=== PATIENT | female | born 1930 | race African-American/Black ===

== ENCOUNTER → 2016-11-10 | Outpatient (CLI) | payer MEDICARE, BC ==
--- NOTE | 2016-11-11 20:03 | XCELERA REPORT ---
[address] [address] Transthoracic Echocardiogram Report Name: GRANT HERNANDEZ Age: 86 yrs Gender: Female : 1930 Patient Status: Outpatient Patient Location: Study Date: 11/10/2016 07:59 AM Height: 66 in Weight: 127 lb BSA: 1.6 m2 Procedure: A complete two-dimensional transthoracic echocardiogram was performed (2D, M-mode, spectral and color flow Doppler). The study was technically adequate with some images being suboptimal in quality. Reason For Study: SOB, EDEMA, HTN Ordering Physician: SANTO CONNOLLY Performed By: Rita Rubalcava Interpretation Summary Left ventricular systolic function is low normal. There is mild concentric left ventricular hypertrophy. The left ventricle is grossly normal size. Doppler measurements suggest pseudonormalized left ventricular relaxation, which is associated with grade II/IV or mild to moderate diastolic dysfunction Wall motion cannot be accurately commented on, but no definite regional wall motion abnormalities noted. The right ventricular systolic function is normal. Borderline right atrial enlargement. The left atrial size is normal. There is a mild amount of mitral regurgitation There is no mitral valve stenosis. No aortic regurgitation is present. There is no aortic valve stenosis There is a mild amount of tricuspid regurgitation There is mild pulmonary hypertension by echo Right ventricular systolic pressure is estimated to be elevated at 30- 40mmHg. The aortic root is not well visualized but is probably normal size. The inferior vena cava appeared dilated and decreased < 50% with respiration (RAP 15-20 mmHg) Minimal pericardial effusion. MMode/2D Measurements & Calculations RVDd: 2.6 cm LVIDd: 3.9 cm FS: 33.3 % Ao root diam: 3.0 cm IVSd: 1.1 cm LVIDs: 2.6 cm EDV(Teich): 64.4 ml LVPWd: 1.1 cm ESV(Teich): 24.1 ml Ao root area: 7.0 cm2 EF(Teich): 62.6 % LA dimension: 3.6 cm LVOT diam: 2.4 cm LVOT area: 4.6 cm2 Doppler Measurements & Calculations MV E max jony: MV P1/2t max jony: Ao V2 max: LV V1 max P.0 cm/sec 101.4 cm/sec 100.9 cm/sec 2.1 mmHg MV A max jony: MV P1/2t: 52.2 msec Ao max PG: LV V1 max: 33.9 cm/sec MVA(P1/2t): 4.2 cm2 4.1 mmHg 71.6 cm/sec MV E/A: 3.0 MV dec slope: CATHERINE(V,D): 3.3 cm2 569.5 cm/sec2 PA V2 max: TR max jony: 69.9 cm/sec 264.2 cm/sec PA max P.0 mmHgTR max P.9 mmHg Left Ventricle The left ventricle is grossly normal size. There is mild concentric left ventricular hypertrophy. Left ventricular systolic function is low normal. Doppler measurements suggest pseudonormalized left ventricular relaxation, which is associated with grade II/IV or mild to moderate diastolic dysfunction. Wall motion cannot be accurately commented on, but no definite regional wall motion abnormalities noted. Right Ventricle The right ventricle is grossly normal size. There is normal right ventricular wall thickness. The right ventricular systolic function is normal. Atria Borderline right atrial enlargement. The left atrial size is normal. Interarterial septum not well visualized and not well dopplered. Cannot comment on ASD/PFO presence. Mitral Valve The mitral valve is grossly normal. There is no mitral valve stenosis. There is a mild amount of mitral regurgitation. Aortic Valve The aortic valve is grossly normal. There is no aortic valve stenosis. No aortic regurgitation is present. Tricuspid Valve The tricuspid valve is not well visualized, but is grossly normal. There is no tricuspid stenosis. There is a mild amount of tricuspid regurgitation. There is mild pulmonary hypertension by echo. Right ventricular systolic pressure is estimated to be elevated at 30-40mmHg. Pulmonic Valve The pulmonic valve is not well visualized. Great Vessels The aortic root is not well visualized but is probably normal size. The inferior vena cava appeared dilated and decreased < 50% with respiration (RAP 15-20 mmHg). Effusions Minimal pericardial effusion. : SANTO CONNOLLY > Diandra Dowell
== END ==
LOC: SP 07:38
PROVIDERS: ATTEND Family Medicine
DX: R06.02 Shortness of breath (principal); R60.1 Generalized edema; E78.4 Other hyperlipidemia
CPT/HCPCS: 93306

== ENCOUNTER → 2017-10-25 | Outpatient (CLI) | payer MEDICARE, BC ==
--- NOTE | 2017-10-25 13:24 | XCELERA REPORT ---
[address] [address] Lower Extremity Venous Evaluation Name: GRANT HERNANDEZ Age: 87 yrs Gender: Female : 1930 Patient Status: Outpatient Patient Location: Study Date: 10/25/2017 11:36 AM Procedure: Color flow and duplex imaging bilaterally of the veins of the lower extremities as well as the Common Femoral veins. Reason For Study: BLE SWELLING Ordering Physician: UNRULY TORRES Performed By: Maxi Eden Right Sided Venous Evaluation Normal vessel filling wall to wall, compression and augmentation as well as Colour flow down to the infrageniculate veins. Left Sided Venous Evaluation Normal vessel filling wall to wall, compression and augmentation as well as Colour flow down to the infrageniculate veins. Interpretation Summary No duplex evidence of DVT or obstruction in the bilateral lower extremities. : UNRULY TORRES > Brandon Ochoa
== END ==
LOC: SP 10:39
PROVIDERS: ATTEND Physician Assistant
DX: R60.9 Edema, unspecified (principal)
CPT/HCPCS: 93970

== ENCOUNTER → 2017-11-19 | Outpatient (CLI) | payer MEDICARE, BC ==
--- NOTE | 2017-11-19 21:55 | XCELERA REPORT ---
[address] [address] Transthoracic Echocardiogram Report Name: GRANT HERNANDEZ Age: 87 yrs Gender: Female : 1930 Patient Status: Outpatient Patient Location: RAD Study Date: 11/19/2017 10:22 AM Height: 66 in Weight: 137 lb BSA: 1.7 m2 Reason For Study: BLE SWELLING Ordering Physician: UNRULY TORRES Performed By: Maxi Eden Interpretation Summary Min post peric. effusion Ao root calcified, not dilated 29mm. Thickened 3 cusp AV with no , no AR. Mild MAC, with no MVP, no MS and only trace MR with no LA enlargement. JARED not measured. LV is not enlarged, LVESD 26mm. LVEF 60-65%, with LVDD. other than basal inferior wall hypokinesis, no other regional wall motion abnormality. RH is abnormal, TV is thickened, and held open simulating carcinoid involvement with moderate TR with RVSP 36mm. Hg, and mild RA enlargement. Trace CT. IVC upper normal 21 mm. MMode/2D Measurements & Calculations RVDd: 2.7 cm LVIDd: 4.1 cm FS: 25.7 % Ao root diam: 2.7 cm IVSd: 0.85 cm LVIDs: 3.0 cm EDV(Teich): 72.7 ml LVPWd: 0.76 cm ESV(Teich): 35.6 ml Ao root area: 5.7 cm2 LA dimension: 3.7 cm EF(Teich): 51.1 % LVOT diam: 2.1 cm LVOT area: 3.3 cm2 Doppler Measurements & Calculations MV E max jony: MV P1/2t max jony: Ao V2 max: LV V1 max P.4 cm/sec 86.0 cm/sec 108.6 cm/sec 2.0 mmHg MV A max jony: MV P1/2t: 74.3 msec Ao max PG: LV V1 max: 27.8 cm/sec MVA(P1/2t): 3.0 cm2 4.7 mmHg 70.6 cm/sec MV E/A: 3.0 MV dec slope: CATHERINE(V,D): 2.1 cm2 338.8 cm/sec2 MV dec time: 0.41 sec PA V2 max: PI end-d jony: TR max jony: MV P1/2t-pr_phl: 70.3 cm/sec 104.7 cm/sec 293.2 cm/sec 74.3 msec PA max PG: TR max P.0 mmHg 34.4 mmHg Left Ventricle The left ventricle is grossly normal size. There is mild concentric left ventricular hypertrophy. IVS = PW = 11 mm. The left ventricular ejection fraction is normal. LVESD 26mm. B notch on AML of MV suggest increased LVEDP. There is basal inferior wall severe hypokinesis. There is no thrombus. Right Ventricle The right ventricle is grossly normal size. The right ventricular systolic function is normal. Atria The right atrium is dilated. The left atrial size is normal. The interatrial septum is intact with no evidence for an atrial septal defect. Mitral Valve The mitral valve is normal in structure and function. There is no evidence of mitral valve prolapse. There is no mitral valve stenosis. There is a trace amount of mitral regurgitation. Aortic Valve The aortic valve is trileaflet. The aortic valve opens well. The aortic valve is sclerotic and shows some degree of functional abnormality. There is no aortic valvular vegetation. There is no aortic valve stenosis. No aortic regurgitation is present. Tricuspid Valve Tricuspid leaflets are thickened. 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 There is no tricuspid valve prolapse. There is no tricuspid stenosis. Best estimated right ventricular systolic pressure is elevated at 30-40mmHg. Best estimated RVSP is approximately 36 mm/Hg. RAP est. 8mm Hg. Pulmonic Valve There is a trace or physiologic amount of pulmonic regurgitation. Great Vessels The aortic root is normal size. There is aortic root sclerosis/calcification. Effusions Minimal pericardial effusion. I WMSI = 1.06 % Normal = 94 Segments Size X - Cannot 2 - 4 - 1-2 small Interpret 1 - Normal Hypokinetic 3 - AkineticDyskinetic 3-5 moderate 5 - 6-14 large Aneurysmal 15-16 diffuse : UNRULY TORRES Andre
== END ==
LOC: RAD 09:57
PROVIDERS: ATTEND Physician Assistant
DX: R60.0 Localized edema (principal)
CPT/HCPCS: 93306

== ENCOUNTER 2018-02-04 15:13 | Emergency (ER) | payer MEDICARE, BC ==
--- NOTE | 2018-02-04 15:47 | ER Document Report ---
ED Fall - General Chief Complaint: Fall Stated Complaint: FALL Time Seen by Provider: 02/04/18 15:32 Mode of Arrival: Medic Information source: Patient, Relative TRAVEL OUTSIDE OF THE [place] IN LAST 30 DAYS: No - HPI Patient complains to provider of: Fall Occurred: Other - 87-year-old female with a history of a previous CVA 5 weeks prior that presents for evaluation of a fall today which was witnessed by her daughter. Her daughter notes that she thinks her mother got unsteady on her feet and tripped when getting up out of the chair without any obvious loss of consciousness shaking jerking or episodes of unresponsiveness she did hit her head but remained at her baseline according to her daughter. She was able to help her mother up thereafter and they called for help. Her mother does have a known issue related to speech and some weakness in her right side as a result of her previous stroke though it had been getting much better and she is still undergoing rehab at this time. Currently she has no acute complaints. - Related data Allergies/Adverse Reactions: No Known Allergies Allergy (Verified 02/04/18 15:24) Past Medical History - General Information source: Patient, Relative - Social History Smoking Status: Unknown if Ever Smoked Chew tobacco use (# tins/day): Yes Frequency of alcohol use: None Drug Abuse: None Family History: Reviewed & Not Pertinent Patient has suicidal ideation: No Patient has homicidal ideation: No - Past Medical History Cardiac Medical History: Reports: Hx Hypercholesterolemia, Hx Hypertension Renal/ Medical History: Denies: Hx Peritoneal Dialysis GI Medical History: Reports: Hx Gastroesophageal Reflux Disease Musculoskeletal Medical History: Reports Hx Arthritis Past Surgical History: Reports: Hx Tubal Ligation Review of Systems - Review of Systems -: Yes All other systems reviewed and negative Physical Exam - Vital signs Vitals: Temp Pulse Resp BP Pulse Ox 98.4 F 63 20 153/66 H 98 02/04/18 15:26 02/04/18 15:26 02/04/18 15:26 02/04/18 15:26 02/04/18 15:26 - General General appearance: Appears well In distress: None - HEENT Head: Normocephalic Eyes: Normal Conjunctiva: Normal Cornea: Normal Extraocular movements intact: Yes Eyelashes: Normal Pupils: PERRL Nerve palsy: Yes - Slight asymmetry in the face with flattening on the right side - Respiratory Respiratory status: No respiratory distress Chest status: Nontender Breath sounds: Normal Chest palpation: Normal - Cardiovascular Rhythm: Regular Heart sounds: Normal auscultation Murmur: No - Abdominal Inspection: Normal Distension: No distension Tenderness: Nontender - Back Back: Normal - Extremities General upper extremity: Normal inspection, Nontender, Normal temperature General lower extremity: Normal inspection, Nontender, Normal strength, Normal temperature - Neurological Neuro grossly intact: Yes Cognition: Normal Orientation: AAOx4 Putnam Coma Scale Eye Opening: Spontaneous [place]nam Coma Scale Verbal: Oriented Lizzie Coma Scale Motor: Obeys Commands Lizzie Coma Scale Total: 15 Speech: Other - Able to repeat complex speech pattern, recognizes wristwatch, recognizes pain, slightly slow in delivery Cranial nerves: Facial palsy - Slight asymmetry in the face with the right side flattened Cerebellar coordination: Normal Motor strength normal: LUE, RUE, LLE, RLE Additional motor exam normals: Equal therapist respiratory - Psychological Associated symptoms: Normal affect, Normal mood Course - Re-evaluation Re-evalutation: 02/04/18 15:46 87-year-old female with a history of a CVA in the past as well as hypertension that presents for evaluation of an episode today which she stood up from a chair became unsteady on her feet. She subsequently had a mechanical fall did hit the back of her head and neck however did not lose consciousness at that time. Per her daughter who is at the bedside she is at her neurologic baseline at this time. Currently she has no complaints, no obvious injuries. We will plan for CT of the head and cervical spine. We will plan for reassessment. Patient currently has no complaints, CT imaging of the head and cervical spine negative, subsequently her cervical collar was removed she has no midline tenderness. Spoke to the daughters and the mother about potential further investigation including blood work and monitoring if there was further concern though her mother is currently at their neurologic baseline we will plan for a trial of ambulation reassessment. Patient was able to ambulate with minor assistance per her baseline level of functioning while in emergency department, she is neurologically intact, well- appearing and ambulatory at the time of discharge in the care of her daughters who declined further investigation. - Vital Signs Vital signs: Temp Pulse Resp BP Pulse Ox 98.0 F 61 18 132/63 H 97 02/04/18 18:12 02/04/18 18:12 02/04/18 18:12 02/04/18 18:12 02/04/18 18:12 Discharge - Discharge Clinical Impression: Fall Qualifiers: Encounter type: subsequent encounter Qualified Code(s): W19.XXXD - Unspecified fall, subsequent encounter Accident due to mechanical fall without injury Qualifiers: Encounter type: initial encounter Qualified Code(s): W19.XXXA - Unspecified fall, initial encounter Condition: Good Disposition: HOME, SELF-CARE Additional Instructions: Your seen today in the emergency department after your fall. He had evaluation including a physical exam as well as a CAT scan of your head and neck. There were no obvious broken bones or bleeds inside of your head. You should schedule appointment with your primary physician next week for follow -up. Return for any worsening numbness or weakness, fevers or chills, or other symptoms make sure that you are using your walker. Referrals: UNRULY TORRES PA [NO LOCAL MD] - Follow up as needed
--- NOTE | 2018-02-04 16:06 | RADIOLOGY REPORT (SQ) ---
EXAM DESCRIPTION: CT HEAD WITHOUT COMPLETED DATE/TIME: 02/04/2018 3:58 pm REASON FOR STUDY: fall and head trauma COMPARISON: 2013 TECHNIQUE: Axial images acquired through the brain without intravenous contrast. Images reviewed wi th bone, brain and subdural windows. Additional sagittal and coronal reconstructions were generated. Images stored on PACS. All CT scanners at this facility use dose modulation, iterative reconstruction, and/or weight based d osing when appropriate to reduce radiation dose to as low as reasonably achievable (ALARA). [facility]: Dose Right [facility]: CareDose [facility]: Dose Right [facility]: Teradose 4D [facility]: Smart [employer] RADIATION DOSE: CT Rad equipment meets quality standard of care and radiation dose reduction techniq ues were employed. CTDIvol: 53.2 mGy. DLP: 1097 mGy-cm. mGy. LIMITATIONS: None. FINDINGS: VENTRICLES: Normal size and contour. CEREBRUM: No masses. No hemorrhage. No midline shift. No evidence for acute infarction. Normal gra y/white matter differentiation. No areas of low density in the white matter. CEREBELLUM: No masses. No hemorrhage. No alteration of density. No evidence for acute infarction. EXTRAAXIAL SPACES: No fluid collections. No masses. ORBITS AND GLOBE: No intra- or extraconal masses. Normal contour of globe without masses. CALVARIUM: No fracture. PARANASAL SINUSES: No fluid or mucosal thickening. SOFT TISSUES: No mass or hematoma. OTHER: No other significant finding. IMPRESSION: NORMAL BRAIN CT WITHOUT CONTRAST. EVIDENCE OF ACUTE STROKE: NO. COMMENT: Quality ID # 436: Final reports with documentation of one or more dose reduction techniques (e.g., Automated exposure control, adjustment of the mA and/or kV according to patient size, use of iterative reconstruction technique) TECHNICAL DOCUMENTATION: JOB ID: [id number] [email or web address]- All Rights Reserved Reading location - IP/workstation name: [email or web address]
--- NOTE | 2018-02-04 16:07 | RADIOLOGY REPORT (SQ) ---
EXAM DESCRIPTION: CT CERVICAL SPINE WITHOUT COMPLETED DATE/TIME: 02/04/2018 3:58 pm REASON FOR STUDY: fall and head trauma COMPARISON: None. TECHNIQUE: Axial images acquired through the cervical spine without intravenous contrast. Images re viewed with lung, soft tissue and bone windows. Reconstructed coronal and sagittal MPR images review ed. Images stored on PACS. All CT scanners at this facility use dose modulation, iterative reconstruction, and/or weight based d osing when appropriate to reduce radiation dose to as low as reasonably achievable (ALARA). [facility]: Dose Right [facility]: CareDose [facility]: Dose Right [facility]: Teradose 4D [facility]: Smart [employer] RADIATION DOSE: CT Rad equipment meets quality standard of care and radiation dose reduction techniq ues were employed. CTDIvol: 12.3 mGy. DLP: 290 mGy-cm. mGy. LIMITATIONS: None. FINDINGS: ALIGNMENT: Anatomic. MINERALIZATION: Normal. VERTEBRAL BODIES: No fractures or dislocation. DISCS: Multilevel disc space narrowing with osteophytes. FACETS, LATERAL MASSES, POSTERIOR ELEMENTS: Facet arthropathy. No fractures. No dislocation. No ac obdulio findings. HARDWARE: None in the spine. VISUALIZED RIBS: No fractures. LUNG APICES AND SOFT TISSUES: No significant or acute findings. OTHER: No other significant finding. IMPRESSION: CHRONIC DEGENERATIVE CHANGES. NO ACUTE FINDINGS. TECHNICAL DOCUMENTATION: JOB ID: [id number] Quality ID # [id number]: Final reports with documentation of one or more dose reduction techniques (e.g., Au tomated exposure control, adjustment of the mA and/or kV according to patient size, use of iterative reconstruction technique) 2010 [employer]- All Rights Reserved Reading location - IP/workstation name: [email or web address]
[2018-02-04 18:17] VITALS: BP 132/63
== END 2018-02-04 18:17 | disposition home or self-care (01) ==
LOC: ER 15:13
DX: Z04.3 Encounter for examination and observation following other accident (principal); I69.351 Hemiplegia and hemiparesis following cerebral infarction affecting right dominant side; I69.328 Other speech and language deficits following cerebral infarction; I10 Essential (primary) hypertension
CPT/HCPCS: 70450; 72125; 99284

== ENCOUNTER 2018-02-04 18:36 | Inpatient (IN) | payer MEDICARE, BC ==
--- NOTE | 2018-02-04 18:40 | ER Document Report ---
ED Medical Screen (RME) - General Stated Complaint: SPEECH PROBLEM Time Seen by Provider: 02/04/18 18:38 Notes: Patient was just discharged from the hospital short time ago. She was placed in the car and they were going to get something to eat after being discharged and then she was unable to answer questions and seemed to be having slurred speech and right-sided weakness. Patient was brought immediately back. Helped into a chair out of the car. I have greeted and performed a rapid initial assessment of this patient. A comprehensive ED assessment and evaluation of the patient, analysis of test results and completion of the medical decision making process will be conducted by additional ED providers. TRAVEL OUTSIDE OF THE [place] IN LAST 30 DAYS: No - Related Data Allergies/Adverse Reactions: No Known Allergies Allergy (Verified 02/04/18 15:24) Past Medical History - Past Medical History Cardiac Medical History: Reports: Hx Hypercholesterolemia, Hx Hypertension Renal/ Medical History: Denies: Hx Peritoneal Dialysis GI Medical History: Reports: Hx Gastroesophageal Reflux Disease Musculoskeltal Medical History: Reports Hx Arthritis Past Surgical History: Reports: Hx Tubal Ligation Doctor's Discharge - Discharge Referrals: SANTO CONNOLLY MD [Primary Care Provider] - Follow up as needed
--- NOTE | 2018-02-04 18:57 | RADIOLOGY REPORT (SQ) ---
EXAM DESCRIPTION: CT HEAD WITHOUT COMPLETED DATE/TIME: 02/04/2018 6:48 pm REASON FOR STUDY: right sided weakness COMPARISON: 02/04/2018 TECHNIQUE: Axial images acquired through the brain without intravenous contrast. Images reviewed wi th bone, brain and subdural windows. Additional sagittal and coronal reconstructions were generated. Images stored on PACS. All CT scanners at this facility use dose modulation, iterative reconstruction, and/or weight based d osing when appropriate to reduce radiation dose to as low as reasonably achievable (ALARA). [facility]: Dose Right [facility]: CareDose [facility]: Dose Right [facility]: Teradose 4D [facility]: Smart [employer] RADIATION DOSE: CT Rad equipment meets quality standard of care and radiation dose reduction techniq ues were employed. CTDIvol: 53.2 mGy. DLP: 1070 mGy-cm. mGy. LIMITATIONS: None. FINDINGS: VENTRICLES: Normal size and contour. CEREBRUM: No masses. No hemorrhage. No midline shift. No evidence for acute infarction. Normal gra y/white matter differentiation. No areas of low density in the white matter. CEREBELLUM: No masses. No hemorrhage. No alteration of density. No evidence for acute infarction. EXTRAAXIAL SPACES: No fluid collections. No masses. ORBITS AND GLOBE: No intra- or extraconal masses. Normal contour of globe without masses. CALVARIUM: No fracture. PARANASAL SINUSES: No fluid or mucosal thickening. SOFT TISSUES: No mass or hematoma. OTHER: No other significant finding. IMPRESSION: NORMAL BRAIN CT WITHOUT CONTRAST. EVIDENCE OF ACUTE STROKE: NO. COMMENT: Quality ID # 436: Final reports with documentation of one or more dose reduction techniques (e.g., Automated exposure control, adjustment of the mA and/or kV according to patient size, use of iterative reconstruction technique) TECHNICAL DOCUMENTATION: JOB ID: [id number] [email or web address]- All Rights Reserved Reading location - IP/workstation name: [email or web address]
--- NOTE | 2018-02-04 19:01 | RADIOLOGY REPORT (SQ) ---
EXAM DESCRIPTION: CHEST SINGLE VIEW COMPLETED DATE/TIME: 02/04/2018 6:49 pm REASON FOR STUDY: stroke alert COMPARISON: 05/21/2008 EXAM PARAMETERS: NUMBER OF VIEWS: One view. TECHNIQUE: Single frontal radiographic view of the chest acquired. RADIATION DOSE: NA LIMITATIONS: None. FINDINGS: LUNGS AND PLEURA: No opacities, masses or pneumothorax. No pleural effusion. MEDIASTINUM AND HILAR STRUCTURES: No masses. Contour normal. HEART AND VASCULAR STRUCTURES: Heart normal in size. Normal vasculature. BONES: No acute findings. HARDWARE: None in the chest. OTHER: No other significant finding. IMPRESSION: NO ACUTE RADIOGRAPHIC FINDING IN THE CHEST. TECHNICAL DOCUMENTATION: JOB ID: [id number] [employer]- All Rights Reserved Reading location - IP/workstation name: [email or web address]
[2018-02-04 19:08] LABS: ABSOLUTE BASOPHILS # (AUTO) 0.1 10^3/uL (0.0-0.2); ABSOLUTE LYMPHOCYTES (AUTO) 1.8 10^3/uL (0.5-4.7); ABSOLUTE MONOCYTES (AUTO) 0.4 10^3/uL (0.1-1.4); BASOPHILS % (AUTO) 0.8 % (0-2); EOSINOPHILS % (AUTO) 0.2 % (0-6); HEMATOCRIT 32.9 % (36.0-47.0); LYMPHOCYTES % (AUTO) 17.5 % (13-45); MEAN CORPUSCULAR HEMOGLOBIN 29.9 pg (27.0-33.4); MEAN CORPUSCULAR HGB CONC 33.5 g/dL (32.0-36.0); MEAN CORPUSCULAR VOLUME 89 fl (80-97); MONOCYTES % (AUTO) 4.1 % (3-13); PLATELET COUNT 241 10^3/uL (150-450); RED BLOOD COUNT 3.69 10^6/uL (3.72-5.28); RED CELL DISTRIBUTION WIDTH 14.7 % (11.5-14.0); SEGMENTED NEUTROPHILS % (AUTO) 77.4 % (42-78); TOTAL CELLS COUNTED % (AUTO) 100 %; WHITE BLOOD COUNT 10.3 10^3/uL (4.0-10.5)
--- NOTE | 2018-02-04 19:10 | ER Document Report ---
ED Neuro Symptoms/Deficit - General Chief Complaint: S/S of Possible Stroke Stated Complaint: SPEECH PROBLEM Time Seen by Provider: 02/04/18 18:38 Mode of Arrival: Wheelchair Information source: Relative TRAVEL OUTSIDE OF THE [place] IN LAST 30 DAYS: No - HPI Patient complains to provider of: Difficulty walking, Facial Droop, Speech Impairment, Weakness Onset: Other - 87-year-old female who presents from the parking lot after the development of difficulty speaking as well as confusion and weakness following discharge from the emergency department. Her daughters noted that they were getting her into the car when she was walking and then suddenly seemed to become more confused. They immediately brought her back in thereafter. 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 She also has a history of hypertension hyperlipidemia. - Related Data Allergies/Adverse Reactions: No Known Allergies Allergy (Verified 02/04/18 15:24) Past Medical History - General Information source: Patient, Relative Cannot obtain history due to: Altered mental status - Social History Smoking Status: Former Smoker Cigarette use (# per day): No Chew tobacco use (# tins/day): No Frequency of alcohol use: None Drug Abuse: None Lives with: Family Family History: CVA - Past Medical History Cardiac Medical History: Reports: Hx Hypercholesterolemia, Hx Hypertension Renal/ Medical History: Denies: Hx Peritoneal Dialysis GI Medical History: Reports: Hx Gastroesophageal Reflux Disease Musculoskeletal Medical History: Reports Hx Arthritis Past Surgical History: Reports: Hx Tubal Ligation Review of Systems - Review of Systems -: Yes All other systems reviewed and negative Physical Exam - Vital signs Vitals: Resp 12 02/04/18 19:02 - General General appearance: Alert, Anxious In distress: Mild - HEENT Head: Normocephalic Eyes: Normal Conjunctiva: Normal Extraocular movements intact: No - Extraocular movements are asymmetric, left eye legs on lateral tracking Eyelashes: Normal -: bilateral: Pupils uneven, Nonreactive Nasal: Normal Mouth/Lips: Normal Mucous membranes: Normal Pharynx: Normal Neck: Normal - Respiratory Respiratory status: No respiratory distress Chest status: Nontender Breath sounds: Normal Chest palpation: Normal - Cardiovascular Rhythm: Regular Heart sounds: Normal auscultation Murmur: No - Abdominal Inspection: Normal Distension: No distension Tenderness: Nontender - Back Back: Normal - Extremities General upper extremity: Normal inspection, Nontender, Normal strength, Normal temperature General lower extremity: Normal inspection, Nontender, Normal strength, Normal temperature - Neurological Neuro grossly intact: No Cognition: Confused, Inattentive Orientation: Disoriented to place, Disoriented to time, Disoriented to events [place] Coma Scale Eye Opening: Spontaneous [place] Coma Scale Verbal: Confused [place] Coma Scale Motor: Obeys Commands [place] Coma Scale Total: 14 Speech: Dysarthria, Expressive aphasia Cranial nerves: Facial palsy Cerebellar coordination: Finger-nose rhombey - Psychological Associated symptoms: Confused Course - Re-evaluation Re-evalutation: 02/05/18 00:42 87-year-old female who was seen previously in the emergency department status post fall. She presented for the acute onset of confusion and difficulty speaking. On examination immediately this patient in comparison to her previous demonstrates a markedly different neurologic constellation. She is unable to answer simple questions which previously she was able to answer like location and orientation questions. On initial evaluation she is protecting her airway as there is a concern for potential delayed bleed patient was immediately brought to CT imaging. CT imaging of the head did not demonstrate any new acute intracranial process from previous CT earlier in the day, no obvious bleed was identified. Given that this patient has an NIH of 8 much worsened from her previous of 1 without any obvious hemorrhage on CT and concerned that this represents a thromboembolic infarct. My concern for thromboembolic infarct will prompt further investigation for possible stroke, however despite this patient's prompt onset of symptoms prior to arrival she is 5 weeks status post a previously diagnosed CVA she also had head trauma earlier today and is 87 years old because of these I believe she is a poor candidate for lytic therapy at this time would likely be harmed as opposed to helped per the previous [facility] studies. I will plan for the admission of this patient to the hospital for further symptomatic care and evaluation, will obtain MRI however patient will require admission regardless. Have contacted on-call Dr. Valencia for Dr. Alvarado, he agrees to admit this patient to the hospital and will plan for telemetry monitoring. She is hemodynamically stable at this time. - Vital Signs Vital signs: Temp Pulse Resp BP Pulse Ox 97.4 F 66 14 172/68 H 99 02/04/18 22:47 02/04/18 22:27 02/04/18 22:27 02/04/18 22:27 02/04/18 22:27 - Laboratory Result Diagrams: 02/04/18 18:56 02/04/18 19:35 Laboratory results interpreted by me: 02/04/18 02/04/18 18:56 19:35 RBC 3.69 L Hgb 11.0 L Hct 32.9 L RDW 14.7 H Est GFR ( Amer) 59 L Est GFR (Non-Af Amer) 49 L Glucose 135 H AST 48 H Creatine Kinase 302 H Discharge - Discharge Clinical Impression: Confusion, Dysmetria CVA (cerebral vascular accident) Qualifiers: CVA mechanism: unspecified Qualified Code(s): I63.9 - Cerebral infarction, unspecified Condition: Stable Disposition: ADMITTED INPATIENT Admitting Provider: [facility] Unit Admitted: Telemetry
[2018-02-04 19:12] LABS: PARTIAL THROMBOPLASTIN TIME 32.9 SEC (23.5-35.8)
[2018-02-04 19:14] LABS: INTERNATIONAL RATION (INR) 0.97; PROTHROMBIN TIME 13.4 SEC (11.4-15.4)
[2018-02-04 20:16] LABS: ALANINE AMINOTRANSFERASE 27 U/L (9-52); ALBUMIN 3.7 g/dL (3.5-5.0); ALKALINE PHOSPHATASE 104 U/L (38-126); ANION GAP 11 (5-19); ASPARTATE AMINO TRANSFERASE 48 U/L (14-36); BILIRUBIN,DIRECT 0.3 mg/dL (0.0-0.4); BILIRUBIN,TOTAL 0.5 mg/dL (0.2-1.3); BLOOD UREA NITROGEN 19 mg/dL (7-20); CALCIUM 9.3 mg/dL (8.4-10.2); CARBON DIOXIDE 26 mmol/L (22-30); CHLORIDE 104 mmol/L (98-107); CREATINE KINASE 302 U/L (30-135); GLUCOSE 135 mg/dL (75-110); POTASSIUM 4.2 mmol/L (3.6-5.0); SODIUM 141.3 mmol/L (137-145); TOTAL PROTEIN 6.8 g/dL (6.3-8.2)
[2018-02-04 20:28] LABS: CREATINE KINASE MB 1.34 ng/mL (<4.55); TROPONIN I 0.016 ng/mL
--- NOTE | 2018-02-04 22:11 | RADIOLOGY REPORT (SQ) ---
EXAM DESCRIPTION: MR BRAIN WITHOUT IV CONTRAST COMPLETED DATE/TME: 02/04/2018 19:57 CLINICAL HISTORY: 87 years, Female, concern for cva COMPARISON: CT brain from today's date TECHNIQUE: 249 Images stored on PACS. LIMITATIONS: None. FINDINGS: The globes are intact. The paranasal sinuses and mastoid air cells are unremarkable. Normal flow void in visualized intracranial vessels. The visualized cranial nerve complexes are unremarkable. There is no intra or extra-axial hemorrhage. Diffusion-weighted images show a punctate focus of diffusion restriction in the high left frontoparietal region. This measures approximately 2.9 mm. Questionable low signal in this region on the ADC map. No evidence for large or territorial acute infarct. No mass or midline shift. Diffuse age-appropriate atrophy. Areas of increased FLAIR/T2 white matter signal in the periventricular and subcortical regions bilaterally consistent with sequelae of small vessel ischemic change. A more curvilinear area of increased FLAIR/T2 signal in the left frontotemporal region, appearing to involve the cortical surface is present. This could reflect laminar necrosis or nonspecifically O cysts. No discrete mass. No midline shift. IMPRESSION: Punctate 2.9 mm focus of diffusion restriction in the high left frontoparietal region consistent with punctate lacunar infarct. No large or territorial acute infarct. Curvilinear area of increased FLAIR/T2 signal in the left frontotemporal region may reflect laminar necrosis. Continued follow-up recommended. An inflammatory/infectious or neoplastic process felt much less likely. Diffuse atrophy. Small vessel ischemic change. 2011 [employer]- All Rights Reserved
[2018-02-04 22:47] LABS: APPEARANCE,URINE CLEAR; BILIRUBIN,URINE NEGATIVE (NEGATIVE); COLOR,URINE STRAW; GLUCOSE, URINE NEGATIVE (NEGATIVE); KETONES,URINE NEGATIVE (NEGATIVE); LEUKOCYTE ESTERASE,URINE LARGE (NEGATIVE); NITRITE,URINE NEGATIVE (NEGATIVE); PROTEIN,URINE NEGATIVE (NEGATIVE); URINE SPECIFIC GRAVITY 1.005; UROBILINOGEN,URINE NEGATIVE mg/dL (<2.0)
--- NOTE | 2018-02-05 00:15 | EKG REPORT ---
SEVERITY:- ABNORMAL ECG - SINUS RHYTHM FIRST DEGREE AV BLOCK BORDERLINE LEFT AXIS DEVIATION BORDERLINE T ABNORMALITIES, INFERIOR LEADS : Confirmed by: Diandra Dowell 05-Feb-2018 00:14:35
[2018-02-05 06:19] LABS: ARTERIAL BLOOD BASE EXCESS 2.7 mmol/L; ARTERIAL BLOOD H2CO3 1.19 mmol/L (1.05-1.35); ARTERIAL BLOOD HCO3 26.8 mmol/L (20-24); ARTERIAL BLOOD O2 SATURATION 95.4 % (94-98); ARTERIAL BLOOD PCO2 39.5 mmHg (35-45); ARTERIAL BLOOD PH 7.45 (7.35-7.45); ARTERIAL BLOOD PO2 73.7 mmHg (80-100)
[2018-02-05 06:20] LABS: ARTERIAL BLOOD FIO2 ROOM AIR
[2018-02-05 06:43] LABS: ABSOLUTE EOSINOPHILS # (AUTO) 0.1 10^3/uL (0.0-0.6); ABSOLUTE LYMPHOCYTES (AUTO) 1.5 10^3/uL (0.5-4.7); ABSOLUTE MONOCYTES (AUTO) 0.4 10^3/uL (0.1-1.4); ABSOLUTE NEUT (AUTO) 7.5 10^3/uL (1.7-8.2); BASOPHILS % (AUTO) 0.4 % (0-2); EOSINOPHILS % (AUTO) 1.4 % (0-6); HEMATOCRIT 31.7 % (36.0-47.0); HEMOGLOBIN 10.5 g/dL (12.0-15.5); LYMPHOCYTES % (AUTO) 15.7 % (13-45); MEAN CORPUSCULAR HGB CONC 33.1 g/dL (32.0-36.0); MEAN CORPUSCULAR VOLUME 90 fl (80-97); MONOCYTES % (AUTO) 4.1 % (3-13); PLATELET COUNT 178 10^3/uL (150-450); RED CELL DISTRIBUTION WIDTH 13.7 % (11.5-14.0); SEGMENTED NEUTROPHILS % (AUTO) 78.4 % (42-78); TOTAL CELLS COUNTED % (AUTO) 100 %; WHITE BLOOD COUNT 9.6 10^3/uL (4.0-10.5)
[2018-02-05 07:13] LABS: ANION GAP 13 (5-19); BLOOD UREA NITROGEN 16 mg/dL (7-20); CALCIUM 9.5 mg/dL (8.4-10.2); CARBON DIOXIDE 24 mmol/L (22-30); CHLORIDE 107 mmol/L (98-107); GLUCOSE 95 mg/dL (75-110); POTASSIUM 4.5 mmol/L (3.6-5.0); SODIUM 143.7 mmol/L (137-145)
[2018-02-05] MEDS: ENOXAPARIN SODIUM INJ 30 MG/0.3 ML DISP.SYRIN SUBCUT SCH (10:01)
--- NOTE | 2018-02-05 10:10 | RADIOLOGY REPORT (SQ) ---
EXAM DESCRIPTION: CAROTID DOPPLER COMPLETED DATE/TIME: 02/05/2018 9:06 am REASON FOR STUDY: ? CVA COMPARISON: None. TECHNIQUE: Grayscale ultrasound, Doppler velocity and spectra, and color Doppler images acquired of the extra-cranial carotid and vertebral arteries. Images stored on PACS. LIMITATIONS: None. FINDINGS: RIGHT CAROTID CCA Velocities: Within normal limits. ICA Velocities Peak systolic 104 cm/s End diastolic 34 cm/s. Proximal ICA/CCA peak systolic ratio 1.15. Spectra normal. Heterogeneous plaque of the carotid bulbs and bifurcation. LEFT CAROTID CCA Velocities: Within normal limits. ICA Velocities Peak systolic 71 cm/s. End diastolic 24 cm/s. Proximal ICA/CCA peak systolic ratio 1.01. Spectra normal. Heterogeneous plaque of the carotid bulbs and bifurcation. VERTEBRAL ARTERIES: Antegrade flow. Normal waveforms. OTHER: No other significant finding. IMPRESSION: Bilateral extracranial carotid atherosclerosis without hemodynamically significant steno sis by SRU Doppler flow velocity criteria. COMMENT: Quality ID #[id number]: Velocity criteria are extrapolated from the diameter data as defined by t he Society of Radiologists in Ultrasound Consensus Conference. Radiology 2003: 229; 340-346. TECHNICAL DOCUMENTATION: JOB ID: [id number] [employer]- All Rights Reserved Reading location - IP/workstation name: [email or web address]
[2018-02-05] MEDS: ASPIRIN/DIPYRIDAMOLE 25-200 MG 1 CAP.SR CPMP.12HR PO SCH ×2 (11:08→21:27)
[2018-02-05] MEDS ORDERED: [UNRECOGNIZED DRUG - MIXTURE] PO SCH (12:15)
[2018-02-05] MEDS ORDERED: (PENDING PHARMACY ID) (Multivit-Min/Iron/Folic/Lutein [Centrum Silver Women Tablet] 1 EACH PO SCH (12:15)
[2018-02-05] MEDS ORDERED: (PENDING PHARMACY ID) (Omega-3 Fatty Acids/Fish Oil [Fish Oil 1,000 Mg Capsule] 1 EACH) PO SCH (12:15)
[2018-02-05] MEDS ORDERED: BRIMONIDINE TART OU SCH (12:15)
[2018-02-05] MEDS ORDERED: [UNRECOGNIZED DRUG - OTHER] OU SCH (12:15)
[2018-02-05] MEDS ORDERED: TIMOLOL MALEATE OU SCH (12:15)
[2018-02-05] MEDS ORDERED: (PENDING PHARMACY ID) (Pyridoxine Hcl [Vitamin B-6] 100 MG) PO SCH (12:15)
[2018-02-05] MEDS ORDERED: BRINZOLAMIDE OU SCH (12:15)
[2018-02-05] MEDS: MULTIVITAMIN TABLET PO SCH (13:27)
[2018-02-05] MEDS: LANSOPRAZOLE 15 MG TAB.RAP.DR PO SCH (13:27)
[2018-02-05] MEDS: FERROUS SULFATE 325 MG TABLET PO SCH (13:27)
[2018-02-05] MEDS: OMEGA-3 ACID ETHYL ESTERS 1 GM CAPSULE PO SCH (13:28)
[2018-02-05] MEDS: SERTRALINE HCL 50 MG TABLET PO SCH (13:28)
[2018-02-05] MEDS: CALCIUM CARBONATE 250 MG/VITAMIN D3 125 UNIT TABLET PO SCH (13:28)
[2018-02-05] MEDS: TIMOLOL MALEATE 0.5% OPH SOLN 5 ML OU SCH ×2 (13:35→21:27)
[2018-02-05] MEDS: LATANOPROST 0.005% OPH SOLN 2.5 ML OU SCH (13:36)
[2018-02-05] MEDS: PYRIDOXINE HCL 50 MG TABLET PO SCH (13:44)
--- NOTE | 2018-02-05 15:23 | PDOC H&P ---
History of Present Illness Admission Date/PCP: 02/04/18 21:08 SANTO CONNOLLY MD History of Present Illness: GRANT HERNANDEZ is a 87 year old female, she came to the emergency room for evaluation of slurred speech, weakness she could emergency room she was evaluated she was discharged home while she was getting into the car after discharge from the emergency room, she had difficulty walking and then somewhat confused she was returned by the emergency room for evaluation. She recently was admitted at a local hospital, [facility] in [facility] when she sustained a stroke she was admitted on December 23, 2017, she was discharged on December 29, 2017 she was diagnosed as having CVA due to embolism of left middle cerebral artery, non-STEMI. I retrieve records from [place] for evaluation, MRI of the brain was done on 12/23/2017 that showed no masses no midline shift the brain volume and size appropriate for age. Increased FLAIR signal in the left MCA distribution, restricted diffusion in the left MCA distribution consistent with acute left MCA fusion infarct, she has residual weakness of the right side of the body. She also has CT scan angiogram of the head and neck there was no stenosis or disease found. MRI brain was done last night when she presented it demonstrated diffuse restriction in the left frontoparietal region. This measures approximately 2.9 mm. A questionable low signal in this region on the ADC map no evidence for large or territorial acute infarct Past Medical History Cardiac Medical History: Reports: Hyperlipidema, Hypertension Neurological Medical History: Reports: Ischemic CVA GI Medical History: Reports: Gastroesophageal Reflux Disease Musculoskeltal Medical History: Reports: Arthritis Past Surgical History Past Surgical History: Reports: Tubal Ligation Social History Lives with: Family Smoking Status: Former Smoker - Advance Directive Resuscitation Status: Full Code Family History Family History: CVA Parental Family History Reviewed: Yes Children Family History Reviewed: Yes Sibling(s) Family History Reviewed.: Yes Medication/Allergy Home Medications: Acyclovir [Zovirax 200 mg Capsule] 200 mg PO TID 02/05/18 Alendronate Sodium [Fosamax 10 Mg Tablet] 10 mg PO DAILY 02/05/18 Aspirin [Ecotrin 81 mg EC Tablet] 81 mg PO DAILY 02/05/18 Atorvastatin Calcium [Lipitor 80 mg Tablet] 80 mg PO QHS 02/05/18 Brinzolamide/Brimonidine Tart [Simbrinza 1%-0.2% Eye Drops] 8 ml OU BID Ca/D3/Mag Ox/Zinc/Maternal Child Nurse/Renzo/Bor [Calcium 600+D3 Plus Caplet] 1 tab-cap PO DAILY PRN 02/05/18 Ferrous Sulfate [Iron] 325 mg PO DAILY 02/05/18 Gabapentin [Neurontin 100 mg Capsule] 100 mg PO QHS 02/05/18 Latanoprost [Xalatan] 2.5 ml OU DAILY 02/05/18 Multivit-Min/Iron/Folic/Lutein [Centrum Silver Women Tablet] 1 each PO DAILY Collyer-3 Fatty Acids/Fish Oil [Fish Oil 1,000 Mg Capsule] 1 each PO DAILY Omeprazole 20 mg PO DAILY 02/05/18 Pyridoxine HCl [Vitamin B-6] 100 mg PO DAILY 02/05/18 Sertraline HCl [Zoloft 50 mg Tablet] 50 mg PO DAILY 02/05/18 Timolol Maleate 5 ml OU Q12 02/05/18 Tramadol HCl [Ultram 50 mg Tablet] 50 mg PO TID 02/05/18 Allergies/Adverse Reactions: No Known Allergies Allergy (Verified 02/04/18 15:24) Review of Systems Constitutional: ABSENT: chills, fever(s), headache(s), weight gain, weight loss Eyes: ABSENT: visual disturbances Ears: ABSENT: hearing changes Cardiovascular: ABSENT: chest pain, dyspnea on exertion, edema, orthropnea, palpitations Respiratory: ABSENT: cough, hemoptysis Gastrointestinal: ABSENT: abdominal pain, constipation, diarrhea, hematemesis, hematochezia, nausea, vomiting Genitourinary: ABSENT: dysuria, hematuria Musculoskeletal: ABSENT: joint swelling Integumentary: ABSENT: rash, wounds Neurological: PRESENT: abnormal movements, focal weakness Psychiatric: ABSENT: anxiety, depression, homidical ideation, suicidal ideation Endocrine: ABSENT: cold intolerance, heat intolerance, menstrual abnormalities, polydipsia, polyuria Hematologic/Lymphatic: ABSENT: easy bleeding, easy bruising, lymphadenopathy Physical Exam Vital Signs: Temp Pulse Resp BP Pulse Ox 98.2 F 55 L 14 127/49 H 97 02/05/18 06:30 02/05/18 11:00 02/05/18 11:00 02/05/18 11:00 02/05/18 11:00 Intake & Output 02/04/18 02/05/18 02/06/18 06:59 06:59 06:59 Intake Total 225 Balance 225 General appearance: PRESENT: no acute distress, well-developed, well-nourished Head exam: PRESENT: atraumatic, normocephalic Eye exam: PRESENT: PERRLA Ear exam: PRESENT: normal external ear exam Mouth exam: PRESENT: moist, tongue midline Neck exam: PRESENT: full ROM Respiratory exam: PRESENT: clear to auscultation eleazar Cardiovascular exam: PRESENT: RRR, +S1, +S2 Pulses: PRESENT: normal dorsalis pedis pul, +2 pedal pulses bilateral Vascular exam: PRESENT: normal capillary refill GI/Abdominal exam: PRESENT: normal bowel sounds, soft Rectal exam: PRESENT: deferred Neurological exam: PRESENT: alert, motor sensory deficit - Weakness right side of the body Psychiatric exam: PRESENT: appropriate affect, normal mood Skin exam: PRESENT: dry, intact, warm Results Laboratory Results: 02/05/18 06:10 02/05/18 06:10 02/04/18 02/05/18 02/05/18 22:15 06:05 06:10 WBC 9.6 RBC 3.50 L Hgb 10.5 L Hct 31.7 L MCV 90 MCH 30.0 MCHC 33.1 RDW 13.7 Plt Count 178 Seg Neutrophils % 78.4 H Lymphocytes % 15.7 Monocytes % 4.1 Eosinophils % 1.4 Basophils % 0.4 Absolute Neutrophils 7.5 Absolute Lymphocytes 1.5 Absolute Monocytes 0.4 Absolute Eosinophils 0.1 Absolute Basophils 0.0 Carbonic Acid 1.19 HCO3/H2CO3 Ratio 22:1 ABG pH 7.45 ABG pCO2 39.5 ABG pO2 73.7 L ABG HCO3 26.8 H ABG O2 Saturation 95.4 ABG Base Excess 2.7 FiO2 ROOM AIR Sodium Potassium Chloride Carbon Dioxide Anion Gap BUN Creatinine Est GFR ( Amer) Est GFR (Non-Af Amer) Glucose Calcium Urine Color STRAW Urine Appearance CLEAR Urine pH 6.0 Ur Specific [place] 1.005 Urine Protein NEGATIVE Urine Glucose (UA) NEGATIVE Urine Ketones NEGATIVE Urine Blood NEGATIVE Urine Nitrite NEGATIVE Ur Leukocyte Esterase LARGE H Urine WBC (Auto) 6 Urine RBC (Auto) 1 02/05/18 06:10 WBC RBC Hgb Hct MCV MCH MCHC RDW Plt Count Seg Neutrophils % Lymphocytes % Monocytes % Eosinophils % Basophils % Absolute Neutrophils Absolute Lymphocytes Absolute Monocytes Absolute Eosinophils Absolute Basophils Carbonic Acid HCO3/H2CO3 Ratio ABG pH ABG pCO2 ABG pO2 ABG HCO3 ABG O2 Saturation ABG Base Excess FiO2 Sodium 143.7 Potassium 4.5 Chloride 107 Carbon Dioxide 24 Anion Gap 13 BUN 16 Creatinine 0.92 Est GFR ( Amer) > 60 Est GFR (Non-Af Amer) 57 L Glucose 95 Calcium 9.5 Urine Color Urine Appearance Urine pH Ur Specific [place] Urine Protein Urine Glucose (UA) Urine Ketones Urine Blood Urine Nitrite Ur Leukocyte Esterase Urine WBC (Auto) Urine RBC (Auto) 02/05/18 02/05/18 06:10 12:05 Troponin I 0.022 0.017 Impressions: Chest X-Ray 02/04/18 18:38 IMPRESSION: NO ACUTE RADIOGRAPHIC FINDING IN THE CHEST. Head CT 02/04/18 18:38 IMPRESSION: NORMAL BRAIN CT WITHOUT CONTRAST. EVIDENCE OF ACUTE STROKE: NO. Head MRI 02/04/18 19:57 IMPRESSION: Punctate 2.9 mm focus of diffusion restriction in the high left frontoparietal region consistent with punctate lacunar infarct. No large or territorial acute infarct. Curvilinear area of increased FLAIR/T2 signal in the left frontotemporal region may reflect laminar necrosis. Continued follow-up recommended. An inflammatory/infectious or neoplastic process felt much less likely. Diffuse atrophy. Small vessel ischemic change. 2011 [employer] [facility] [employer]- All Rights Reserved Carotid Doppler Study 02/05/18 00:00 IMPRESSION: Bilateral extracranial carotid atherosclerosis without hemodynamically significant stenosis by SRU Doppler flow velocity criteria. Assessment & Plan - Diagnosis (1) Acute right MCA stroke Is this a current diagnosis for this admission?: Yes Plan: She recently had left MCA stroke last months the MRI demonstrated 2.9 mm focus of diffusion restriction in the left frontoparietal region consistent with punctate lacunar infarct there was no large or territorial acute infarct, curviliner area of increased FLAIR/T2 signal in the left frontotemporal region said may reflect laminar necrosis, this could be the beginning of encephalomalacia. We will treat according to stroke protocol, will follow MRI
[2018-02-05] MEDS: ATORVASTATIN CALCIUM 80 MG TABLET PO SCH (21:27)
[2018-02-05] MEDS: GABAPENTIN 100 MG CAPSULE PO SCH (21:27)
[2018-02-06] MEDS: LANSOPRAZOLE 15 MG TAB.RAP.DR PO SCH (06:18)
[2018-02-06 06:36] LABS: ABSOLUTE EOSINOPHILS # (AUTO) 0.2 10^3/uL (0.0-0.6); ABSOLUTE LYMPHOCYTES (AUTO) 1.7 10^3/uL (0.5-4.7); ABSOLUTE MONOCYTES (AUTO) 0.5 10^3/uL (0.1-1.4); ABSOLUTE NEUT (AUTO) 6.3 10^3/uL (1.7-8.2); BASOPHILS % (AUTO) 0.5 % (0-2); HEMATOCRIT 29.7 % (36.0-47.0); HEMOGLOBIN 9.9 g/dL (12.0-15.5); LYMPHOCYTES % (AUTO) 19.5 % (13-45); MEAN CORPUSCULAR HEMOGLOBIN 29.9 pg (27.0-33.4); MEAN CORPUSCULAR HGB CONC 33.5 g/dL (32.0-36.0); MEAN CORPUSCULAR VOLUME 89 fl (80-97); MONOCYTES % (AUTO) 5.8 % (3-13); PLATELET COUNT 179 10^3/uL (150-450); RED BLOOD COUNT 3.33 10^6/uL (3.72-5.28); RED CELL DISTRIBUTION WIDTH 13.8 % (11.5-14.0); SEGMENTED NEUTROPHILS % (AUTO) 72.2 % (42-78); TOTAL CELLS COUNTED % (AUTO) 100 %; WHITE BLOOD COUNT 8.7 10^3/uL (4.0-10.5)
[2018-02-06 07:09] LABS: ANION GAP 11 (5-19); BLOOD UREA NITROGEN 16 mg/dL (7-20); CALCIUM 9.2 mg/dL (8.4-10.2); CARBON DIOXIDE 24 mmol/L (22-30); CHLORIDE 107 mmol/L (98-107); GLUCOSE 91 mg/dL (75-110); SODIUM 141.5 mmol/L (137-145)
[2018-02-06] MEDS: TIMOLOL MALEATE 0.5% OPH SOLN 5 ML OU SCH ×2 (10:23→21:17)
[2018-02-06] MEDS: CALCIUM CARBONATE 250 MG/VITAMIN D3 125 UNIT TABLET PO SCH (10:26)
[2018-02-06] MEDS: ASPIRIN/DIPYRIDAMOLE 25-200 MG 1 CAP.SR CPMP.12HR PO SCH ×2 (10:26→21:19)
[2018-02-06] MEDS: SERTRALINE HCL 50 MG TABLET PO SCH (10:26)
[2018-02-06] MEDS: FERROUS SULFATE 325 MG TABLET PO SCH (10:26)
[2018-02-06] MEDS: MULTIVITAMIN TABLET PO SCH (10:26)
[2018-02-06] MEDS: OMEGA-3 ACID ETHYL ESTERS 1 GM CAPSULE PO SCH (10:26)
[2018-02-06] MEDS: ENOXAPARIN SODIUM INJ 30 MG/0.3 ML DISP.SYRIN SUBCUT SCH (10:26)
[2018-02-06] MEDS: PYRIDOXINE HCL 50 MG TABLET PO SCH (10:27)
[2018-02-06] MEDS: LATANOPROST 0.005% OPH SOLN 2.5 ML OU SCH (10:28)
--- NOTE | 2018-02-06 12:50 | PDOC PROGRESS REPORT ---
Subjective Progress Note for:: 02/06/18 Subjective:: Patient seen by the bedside, she was admitted because of CVA, she was seen by physical therapy and OT Reason For Visit: ENCEPHALOPATHY, CVA Physical Exam Vital Signs: Temp Pulse Resp BP Pulse Ox 99.0 F 57 L 18 103/41 L 98 02/06/18 11:11 02/06/18 11:11 02/06/18 11:11 02/06/18 11:11 02/06/18 11:11 General appearance: PRESENT: no acute distress Eye exam: PRESENT: PERRLA Respiratory exam: PRESENT: clear to auscultation eleazar Cardiovascular exam: PRESENT: +S1, +S2 Neurological exam: PRESENT: alert Results Impressions: Chest X-Ray 02/04/18 18:38 IMPRESSION: NO ACUTE RADIOGRAPHIC FINDING IN THE CHEST. Head CT 02/04/18 18:38 IMPRESSION: NORMAL BRAIN CT WITHOUT CONTRAST. EVIDENCE OF ACUTE STROKE: NO. Head MRI 02/04/18 19:57 IMPRESSION: Punctate 2.9 mm focus of diffusion restriction in the high left frontoparietal region consistent with punctate lacunar infarct. No large or territorial acute infarct. Curvilinear area of increased FLAIR/T2 signal in the left frontotemporal region may reflect laminar necrosis. Continued follow-up recommended. An inflammatory/infectious or neoplastic process felt much less likely. Diffuse atrophy. Small vessel ischemic change. 2011 [facility] [employer]- All Rights Reserved Carotid Doppler Study 02/05/18 00:00 IMPRESSION: Bilateral extracranial carotid atherosclerosis without hemodynamically significant stenosis by SRU Doppler flow velocity criteria. Assessment & Plan - Diagnosis (1) Acute right MCA stroke Is this a current diagnosis for this admission?: Yes Plan: Continue present treatment
[2018-02-06] MEDS ORDERED: SIMBRINZA OU SCH (18:00)
[2018-02-06] MEDS: ATORVASTATIN CALCIUM 80 MG TABLET PO SCH (21:19)
[2018-02-06] MEDS: GABAPENTIN 100 MG CAPSULE PO SCH (21:19)
[2018-02-07 05:28] LABS: ABSOLUTE EOSINOPHILS # (AUTO) 0.2 10^3/uL (0.0-0.6); ABSOLUTE LYMPHOCYTES (AUTO) 1.6 10^3/uL (0.5-4.7); ABSOLUTE MONOCYTES (AUTO) 0.5 10^3/uL (0.1-1.4); ABSOLUTE NEUT (AUTO) 6.6 10^3/uL (1.7-8.2); BASOPHILS % (AUTO) 0.4 % (0-2); EOSINOPHILS % (AUTO) 1.7 % (0-6); HEMATOCRIT 30.7 % (36.0-47.0); HEMOGLOBIN 10.3 g/dL (12.0-15.5); LYMPHOCYTES % (AUTO) 17.5 % (13-45); MEAN CORPUSCULAR HGB CONC 33.5 g/dL (32.0-36.0); MEAN CORPUSCULAR VOLUME 90 fl (80-97); MONOCYTES % (AUTO) 5.6 % (3-13); PLATELET COUNT 170 10^3/uL (150-450); RED BLOOD COUNT 3.43 10^6/uL (3.72-5.28); RED CELL DISTRIBUTION WIDTH 13.9 % (11.5-14.0); SEGMENTED NEUTROPHILS % (AUTO) 74.8 % (42-78); TOTAL CELLS COUNTED % (AUTO) 100 %; WHITE BLOOD COUNT 8.9 10^3/uL (4.0-10.5)
[2018-02-07] MEDS: LANSOPRAZOLE 15 MG TAB.RAP.DR PO SCH (05:29)
[2018-02-07 05:48] LABS: ANION GAP 9 (5-19); BLOOD UREA NITROGEN 16 mg/dL (7-20); CALCIUM 9.1 mg/dL (8.4-10.2); CARBON DIOXIDE 27 mmol/L (22-30); CHLORIDE 107 mmol/L (98-107); GLUCOSE 104 mg/dL (75-110); SODIUM 143.4 mmol/L (137-145)
[2018-02-07] MEDS: PYRIDOXINE HCL 50 MG TABLET PO SCH (10:00)
[2018-02-07] MEDS: CALCIUM CARBONATE 250 MG/VITAMIN D3 125 UNIT TABLET PO SCH (10:00)
[2018-02-07] MEDS: OMEGA-3 ACID ETHYL ESTERS 1 GM CAPSULE PO SCH (10:00)
[2018-02-07] MEDS: MULTIVITAMIN TABLET PO SCH (10:00)
[2018-02-07] MEDS: ASPIRIN/DIPYRIDAMOLE 25-200 MG 1 CAP.SR CPMP.12HR PO SCH ×2 (10:00→21:36)
[2018-02-07] MEDS: FERROUS SULFATE 325 MG TABLET PO SCH (10:00)
[2018-02-07] MEDS: SERTRALINE HCL 50 MG TABLET PO SCH (10:00)
[2018-02-07] MEDS: ENOXAPARIN SODIUM INJ 30 MG/0.3 ML DISP.SYRIN SUBCUT SCH (10:00)
[2018-02-07] MEDS: TIMOLOL MALEATE 0.5% OPH SOLN 5 ML OU SCH ×2 (10:01→21:42)
[2018-02-07] MEDS: SIMBRINZA OU SCH ×2 (10:02→21:39)
[2018-02-07] MEDS ORDERED: NORMAL SALINE 250 ML IV ONE (14:00)
[2018-02-07] MEDS: LATANOPROST 0.005% OPH SOLN 2.5 ML OU SCH (17:55)
--- NOTE | 2018-02-07 19:37 | RADIOLOGY REPORT (SQ) ---
EXAM DESCRIPTION: MRI HEAD WITHOUT COMPLETED DATE/TIME: 02/07/2018 6:53 pm REASON FOR STUDY: cva COMPARISON: 02/04/2018 TECHNIQUE: Multiplanar imaging includes non-contrasted T1, T2, FLAIR, and diffusion with ADC map seq uences. Images stored on PACS. LIMITATIONS: None. FINDINGS: ANATOMY: No anomalies. Normal vascular flow voids. Pituitary fossa normal. CSF SPACES: Normal in size and contour. No hemorrhage. CEREBRUM: Sulci and gyri normal in size and contour. There are areas of increased T2 and FLAIR signa l in the white matter tracts. POSTERIOR FOSSA: No signal alteration. No hemorrhage. No edema, masses or mass effect. Internal sanjiv tory canals, cerebello-pontine angles, mastoids normal. DIFFUSION IMAGING: There are old small areas of diffusion restriction in the left parietal lobe poste riorly. These areas are more extensive than on the earlier MRI. ORBITS: No masses. Globes normal. PARANASAL SINUSES: No fluid levels. Mucosa normal. OTHER: No other significant finding. IMPRESSION: There appear to be multiple small lacunar infarcts developing in the left posterior amaya etal lobe. This represents change from the most recent previous study from February 04. EVIDENCE OF ACUTE STROKE: YES. LEFT MCA TECHNICAL DOCUMENTATION: JOB ID: [id number] [employer]- All Rights Reserved Reading location - IP/workstation name: [email or web address]
--- NOTE | 2018-02-07 21:14 | PDOC PROGRESS REPORT ---
Subjective Progress Note for:: 02/07/18 Subjective:: Patient was seen today by the bedside MRI brain showed extensive multiple infarcts in the left parietal lobe suggesting extension of the infarct Reason For Visit: ENCEPHALOPATHY, CVA Physical Exam Vital Signs: Temp Pulse Resp BP Pulse Ox 98.4 F 60 16 106/49 L 99 02/07/18 19:39 02/07/18 19:39 02/07/18 19:39 02/07/18 19:39 02/07/18 19:39 Intake & Output 02/06/18 02/07/18 02/08/18 06:59 06:59 06:59 Intake Total 700 768 Balance 700 768 Weight 57.5 kg General appearance: PRESENT: no acute distress Eye exam: PRESENT: PERRLA Respiratory exam: PRESENT: clear to auscultation eleazar Cardiovascular exam: PRESENT: +S1, +S2 GI/Abdominal exam: PRESENT: soft Neurological exam: PRESENT: alert, CN II-XII grossly intact - Right-sided paralysis Results Laboratory Results: 02/07/18 04:59 02/07/18 04:59 02/07/18 02/07/18 04:59 04:59 WBC 8.9 RBC 3.43 L Hgb 10.3 L Hct 30.7 L MCV 90 MCH 30.0 MCHC 33.5 RDW 13.9 Plt Count 170 Seg Neutrophils % 74.8 Lymphocytes % 17.5 Monocytes % 5.6 Eosinophils % 1.7 Basophils % 0.4 Absolute Neutrophils 6.6 Absolute Lymphocytes 1.6 Absolute Monocytes 0.5 Absolute Eosinophils 0.2 Absolute Basophils 0.0 Sodium 143.4 Potassium 4.0 Chloride 107 Carbon Dioxide 27 Anion Gap 9 BUN 16 Creatinine 1.04 Est GFR ( Amer) > 60 Est GFR (Non-Af Amer) 50 L Glucose 104 Calcium 9.1 Impressions: Chest X-Ray 02/04/18 18:38 IMPRESSION: NO ACUTE RADIOGRAPHIC FINDING IN THE CHEST. Head CT 02/04/18 18:38 IMPRESSION: NORMAL BRAIN CT WITHOUT CONTRAST. EVIDENCE OF ACUTE STROKE: NO. Carotid Doppler Study 02/05/18 00:00 IMPRESSION: Bilateral extracranial carotid atherosclerosis without hemodynamically significant stenosis by SRU Doppler flow velocity criteria. Head MRI 02/07/18 00:00 IMPRESSION: There appear to be multiple small lacunar infarcts developing in the left posterior parietal lobe. This represents change from the most recent previous study from February 04. EVIDENCE OF ACUTE STROKE: YES. LEFT MCA Assessment & Plan - Diagnosis (1) Acute right MCA stroke Is this a current diagnosis for this admission?: Yes Plan: Continue treatment
[2018-02-07] MEDS: GABAPENTIN 100 MG CAPSULE PO SCH (21:36)
[2018-02-07] MEDS: ATORVASTATIN CALCIUM 80 MG TABLET PO SCH (21:36)
[2018-02-08] MEDS: LANSOPRAZOLE 15 MG TAB.RAP.DR PO SCH (06:30)
[2018-02-08] MEDS: ENOXAPARIN SODIUM INJ 30 MG/0.3 ML DISP.SYRIN SUBCUT SCH (10:04)
[2018-02-08] MEDS: FERROUS SULFATE 325 MG TABLET PO SCH (10:04)
[2018-02-08] MEDS: OMEGA-3 ACID ETHYL ESTERS 1 GM CAPSULE PO SCH (10:04)
[2018-02-08] MEDS: ASPIRIN/DIPYRIDAMOLE 25-200 MG 1 CAP.SR CPMP.12HR PO SCH ×2 (10:04→21:58)
[2018-02-08] MEDS: CALCIUM CARBONATE 250 MG/VITAMIN D3 125 UNIT TABLET PO SCH (10:04)
[2018-02-08] MEDS: SERTRALINE HCL 50 MG TABLET PO SCH (10:04)
[2018-02-08] MEDS: PYRIDOXINE HCL 50 MG TABLET PO SCH (10:05)
[2018-02-08] MEDS: TIMOLOL MALEATE 0.5% OPH SOLN 5 ML OU SCH ×2 (10:05→21:59)
[2018-02-08] MEDS: SIMBRINZA OU SCH ×2 (10:07→21:59)
[2018-02-08] MEDS: MULTIVITAMIN TABLET PO SCH (10:11)
[2018-02-08] MEDS: LATANOPROST 0.005% OPH SOLN 2.5 ML OU SCH (18:46)
--- NOTE | 2018-02-08 21:01 | PDOC PROGRESS REPORT ---
Subjective Progress Note for:: 02/08/18 Subjective:: Patient seen by the bedside, no new complaints today Reason For Visit: ENCEPHALOPATHY, CVA Physical Exam Vital Signs: Temp Pulse Resp BP Pulse Ox 98.8 F 61 20 118/52 L 96 02/08/18 19:35 02/08/18 19:35 02/08/18 19:35 02/08/18 19:35 02/08/18 19:35 Intake & Output 02/07/18 02/08/18 02/09/18 06:59 06:59 06:59 Intake Total 891 512 0677 Balance 158 071 2989 Weight 57.5 kg 59.7 kg General appearance: PRESENT: no acute distress Eye exam: PRESENT: PERRLA Respiratory exam: PRESENT: clear to auscultation eleazar Cardiovascular exam: PRESENT: +S1, +S2 GI/Abdominal exam: PRESENT: soft Neurological exam: PRESENT: alert Results Laboratory Results: 02/07/18 04:59 02/07/18 04:59 Impressions: Chest X-Ray 02/04/18 18:38 IMPRESSION: NO ACUTE RADIOGRAPHIC FINDING IN THE CHEST. Head CT 02/04/18 18:38 IMPRESSION: NORMAL BRAIN CT WITHOUT CONTRAST. EVIDENCE OF ACUTE STROKE: NO. Carotid Doppler Study 02/05/18 00:00 IMPRESSION: Bilateral extracranial carotid atherosclerosis without hemodynamically significant stenosis by SRU Doppler flow velocity criteria. Head MRI 02/07/18 00:00 IMPRESSION: There appear to be multiple small lacunar infarcts developing in the left posterior parietal lobe. This represents change from the most recent previous study from February 04. EVIDENCE OF ACUTE STROKE: YES. LEFT MCA Assessment & Plan - Diagnosis (1) Acute ischemic left MCA stroke Is this a current diagnosis for this admission?: Yes Plan: Continue treatment
[2018-02-08] MEDS: ATORVASTATIN CALCIUM 80 MG TABLET PO SCH (21:58)
[2018-02-08] MEDS: GABAPENTIN 100 MG CAPSULE PO SCH (21:58)
[2018-02-09] MEDS: LANSOPRAZOLE 15 MG TAB.RAP.DR PO SCH (05:12)
[2018-02-09] MEDS: ENOXAPARIN SODIUM INJ 30 MG/0.3 ML DISP.SYRIN SUBCUT SCH (10:01)
[2018-02-09] MEDS: MULTIVITAMIN TABLET PO SCH (10:02)
[2018-02-09] MEDS: OMEGA-3 ACID ETHYL ESTERS 1 GM CAPSULE PO SCH (10:02)
[2018-02-09] MEDS: ASPIRIN/DIPYRIDAMOLE 25-200 MG 1 CAP.SR CPMP.12HR PO SCH (10:02)
[2018-02-09] MEDS: FERROUS SULFATE 325 MG TABLET PO SCH (10:02)
[2018-02-09] MEDS: SIMBRINZA OU SCH (10:03)
[2018-02-09] MEDS: PYRIDOXINE HCL 50 MG TABLET PO SCH (10:03)
[2018-02-09] MEDS: SERTRALINE HCL 50 MG TABLET PO SCH (10:03)
[2018-02-09] MEDS: TIMOLOL MALEATE 0.5% OPH SOLN 5 ML OU SCH (10:04)
[2018-02-09] MEDS: CALCIUM CARBONATE 250 MG/VITAMIN D3 125 UNIT TABLET PO SCH (10:04)
[2018-02-09 13:50] VITALS: BP 130/60
--- NOTE | 2018-02-09 13:51 | PDOC DISCHARGE SUMMARY ---
General - Admit/Disc Date/PCP Admission Date/Primary Care Provider: 02/06/18 10:07 SANTO CONNOLLY MD Discharge Date: 02/09/18 - Discharge Diagnosis (1) Acute ischemic left MCA stroke Is this a current diagnosis for this admission?: Yes (2) Hypertension Is this a current diagnosis for this admission?: Yes - Additional Information Resuscitation Status: Full Code Prescriptions: Aspirin/Dipyridamole [Aggrenox 25 mg/200 mg Capsule SA] 1 cap.sr PO Q12 #180 cpmp.12hr Home Medications: Alendronate Sodium [Fosamax 10 mg Tablet] 10 mg PO DAILY 02/05/18 Atorvastatin Calcium [Lipitor 80 mg Tablet] 80 mg PO QHS 02/05/18 Brinzolamide/Brimonidine Tart [Simbrinza 1%-0.2% Eye Drops] 8 ml OU BID Ca/D3/Mag Ox/Zinc/Product Promoter Retail Pet/Renzo/Bor [Calcium 600-D3 Plus Caplet] 1 tab-cap PO DAILY PRN 02/05/18 Ferrous Sulfate [Iron] 325 mg PO DAILY 02/05/18 Gabapentin [Neurontin 100 mg Capsule] 100 mg PO QHS 02/05/18 Latanoprost [Xalatan] 2.5 ml OU DAILY 02/05/18 Multivit-Min/Iron/Folic/Lutein [Centrum Silver Women Tablet] 1 each PO DAILY [place]-3 Fatty Acids/Fish Oil [Fish Oil 1,000 mg Capsule] 1 each PO DAILY Omeprazole 20 mg PO DAILY 02/05/18 Pyridoxine HCl [Vitamin B-6] 100 mg PO DAILY 02/05/18 Sertraline HCl [Zoloft 50 mg Tablet] 50 mg PO DAILY 02/05/18 Timolol Maleate 5 ml OU Q12 02/05/18 Aspirin/Dipyridamole [Aggrenox 25 mg/200 mg Capsule SA] 1 cap.sr PO Q12 #180 cpmp.12hr 02/09/18 Atorvastatin Calcium [Lipitor 80 mg Tablet] 80 mg PO QHS tablet 02/09/18 History of Present Illness History of Present Illness: GRANT HERNANDEZ is a 87 year old female, she came to the emergency room for evaluation of slurred speech, weakness she could emergency room she was evaluated she was discharged home while she was getting into the car after discharge from the emergency room, she had difficulty walking and then somewhat confused she was returned by the emergency room for evaluation. She recently was admitted at a local hospital, [facility] in [facility] when she sustained a stroke she was admitted on December 23, 2017, she was discharged on December 29, 2017 she was diagnosed as having CVA due to embolism of left middle cerebral artery, non-STEMI. I retrieve records from [place] for evaluation, MRI of the brain was done on 12/23/2017 that showed no masses no midline shift the brain volume and size appropriate for age. Increased FLAIR signal in the left MCA distribution, restricted diffusion in the left MCA distribution consistent with acute left MCA fusion infarct, she has residual weakness of the right side of the body. She also has CT scan angiogram of the head and neck there was no stenosis or disease found. MRI brain was done last night when she presented it demonstrated diffuse restriction in the left frontoparietal region. This measures approximately 2.9 mm. A questionable low signal in this region on the ADC map no evidence for large or territorial acute infarct Hospital Course Hospital Course: Patient was admitted for the management of left MCA infarction of the brain, she recently sustained a CVA in December, she was managed in [facility], she subsequently underwent rehabilitation, she is sustained a new infarcts in the left MCA territory with weakness of the rest of the body. She was on aspirin this was changed to Aggrenox since she sustained stroke on aspirin. She sessions of physical therapy in the hospital. She is already scheduled for outpatient PT Physical Exam Vital Signs: Temp Pulse Resp BP Pulse Ox 97.6 F 64 16 108/41 L 97 02/09/18 10:53 02/09/18 10:53 02/09/18 10:53 02/09/18 10:53 02/09/18 10:53 Intake & Output 02/08/18 02/09/18 02/10/18 06:59 06:59 06:59 Intake Total 768 1050 425 Balance 768 1050 425 Weight 59.7 kg 60.1 kg General appearance: PRESENT: no acute distress Head exam: PRESENT: atraumatic, normocephalic Eye exam: PRESENT: PERRLA Ear exam: PRESENT: normal external ear exam Neck exam: PRESENT: full ROM Respiratory exam: PRESENT: clear to auscultation eleazar Cardiovascular exam: PRESENT: RRR, +S1, +S2 Pulses: PRESENT: normal dorsalis pedis pul, +2 pedal pulses bilateral Vascular exam: PRESENT: normal capillary refill GI/Abdominal exam: PRESENT: normal bowel sounds, soft Rectal exam: PRESENT: deferred Neurological exam: PRESENT: alert, motor sensory deficit Psychiatric exam: PRESENT: appropriate affect, normal mood Skin exam: PRESENT: dry, intact, warm Results Laboratory Results: 02/07/18 04:59 02/07/18 04:59 Impressions: Chest X-Ray 02/04/18 18:38 IMPRESSION: NO ACUTE RADIOGRAPHIC FINDING IN THE CHEST. Head CT 02/04/18 18:38 IMPRESSION: NORMAL BRAIN CT WITHOUT CONTRAST. EVIDENCE OF ACUTE STROKE: NO. Carotid Doppler Study 02/05/18 00:00 IMPRESSION: Bilateral extracranial carotid atherosclerosis without hemodynamically significant stenosis by SRU Doppler flow velocity criteria. Head MRI 02/07/18 00:00 IMPRESSION: There appear to be multiple small lacunar infarcts developing in the left posterior parietal lobe. This represents change from the most recent previous study from February 04. EVIDENCE OF ACUTE STROKE: YES. LEFT MCA Qualifiers - * PATIENT BEING DISCHARGED WITH ANY OF THE FOLLOWING DIAGNOSIS: Stroke VTE patient discharged on overlapping Therapy?: Yes Stroke Pt being discharged on Anti-thrombolytic therapy?: Yes Stroke Pt being discharged on Anti-coagulation therapy?: Yes Stroke Pt being discharged on Statins?: Yes
== END 2018-02-09 15:11 | disposition home or self-care (01) | DRG 66 ==
LOC: ER 18:36 → INTOOBSV 21:08 → EH 21:08 → 4N 23:40 → 3W 02-05 06:25 → OBSVTOIN 02-06 10:07
PROVIDERS: ADMIT Internal Medicine; ATTEND Internal Medicine
DX: I63.411 Cerebral infarction due to embolism of right middle cerebral artery (principal); R53.1 Weakness; R29.810 Facial weakness; R47.9 Unspecified speech disturbances; I10 Essential (primary) hypertension; K21.9 Gastro-esophageal reflux disease without esophagitis; E78.5 Hyperlipidemia, unspecified; Z87.891 Personal history of nicotine dependence; Z79.82 Long term (current) use of aspirin; Z79.899 Other long term (current) drug therapy
CPT/HCPCS: 36415; 70450; 70551; 71045; 72125; 80048; 80053; 81001; 82550; 82553; 82803; 82962; 84484; 85025; 85610; 85730; 90686; 93005; 93010; 93880; 99285; G0378; G8978-GP; G8979-GP; G8987-GO; G8988-GO; G8996-GN; G8997-GN; J1650; J3490